=== PATIENT | male | born 1965 | race Caucasian/White ===

== ENCOUNTER → 2016-08-07 10:54 | Outpatient (CLI) | payer MEDICAID ==
--- NOTE | 2016-08-18 07:21 | EEG ---
PATIENT:FERCHO SAXENA DATE OF SERVICE: 08/07/16 MEDICAL RECORD: [id number] DATE OF : 65 LOCATION: [facility] ADMISSION DATE: 08/07/16 REFERRING PHYSICIAN: INTERPRETING PHYSICIAN: HELENE STEEN MD DATE OF SERVICE: 08/07/2016 REFERRED BY: Myself as an outpatient. ELECTROENCEPHALOGRAM NUMBER: [id number] DATE OF EXAMINATION: 08/07/2016 at 11:30 a.m. TECHNICAL DATA: This electroencephalographic recording consisted of approximately 20 minutes of data collection utilizing the international 10/20 system of electrode placement and both referential and non-referential montages. Sixteen channels of electrocerebral recording are accompanied by a 17th channel dedicated to the electrocardiographic rhythm and 2 channels of electromyographic recording. The recording is performed in the awake and drowsy states utilizing activation by photic stimulation. ELECTROENCEPHALOGRAPHIC DATA: The awake state comprises approximately 60% of the recorded electrocerebral activity. Electromyographic artifact is prominent and rapid eye movements are seen. The posterior dominant background consists of a well-developed, symmetric, rhythmic, waxing and waning alpha activity of 10-11 Hz, which is suppressed by eye opening. The drowsy state comprises the remaining portion of the recorded electrocerebral activity. Electromyographic artifact is diminished and rapid eye movements are not seen. The posterior dominant background is relatively suppressed. No abnormal nor focal slowing is identified. No epileptiform discharges are seen. Photic stimulation induces no abnormal change in the recorded electrocerebral activity. INTERPRETATION: 1. Normal (awake and drowsy). This is a normal electroencephalographic recording. TRANSINT:[id number] Voice Confirmation ID: [id number] DOCUMENT ID: [id number] HELENE STEEN MD at 0721 CC: [id number] DICTATION DATE: 08/08/16 0817 MASS SPECTROSCOPIST: 08/08/16 0903 DEP CLI 08/07/16 [id number] [place] [address]
== END | disposition home or self-care (01) ==
LOC: D.CN 10:54
DX: G40.802 Other epilepsy, not intractable, without status epilepticus (principal); R42 Dizziness and giddiness; E29.1 Testicular hypofunction

== ENCOUNTER 2016-12-13 20:39 | Emergency (ER) | payer MEDICAID ==
[2016-12-13 22:27] LABS: BASOPHILS 0.2 % (0-2); EOSINOPHILS 1.8 % (0-7); HEMATOCRIT 52.4 % (42.0-54.0); HEMOGLOBIN 18.5 g/dL (13.5-17.5); IMMATURE GRANULOCYTES 0.2 % (0-5); LYMPHOCYTES 25.1 % (15-50); MCHC 35.3 g/dL (31.0-37.0); MCV 93.4 fL (80.0-100.0); MEAN PLATELET VOLUME 9.9 fL (7.4-10.4); MONOCYTES 7.3 % (2-11); NEUTROPHILS 65.4 % (40-80); PLATELET COUNT 206 10x3/uL (130-400); RBC 5.61 10x6/uL (4.20-6.10); RDW 12.9 % (11.5-14.5); WBC 9.1 10x3/uL (4.8-10.8)
[2016-12-13 22:45] LABS: ALBUMIN 3.4 g/dL (3.4-5.0); BILIRUBIN - TOTAL 0.47 mg/dL (0.2-1.3); CARBON DIOXIDE 31.6 mmol/L (21.0-32.0); CREATININE - SERUM 1.2 mg/dL (0.6-1.3); POTASSIUM - SERUM 3.6 mmol/L (3.5-5.1)
== END 2016-12-14 00:12 | disposition home or self-care (01) ==
LOC: D.ER 20:39
PROVIDERS: Physician Assistant
DX: I10 Essential (primary) hypertension (principal)

== ENCOUNTER → 2017-02-07 07:50 | Outpatient (CLI) | payer MEDICAID ==
[~2017-02-07 07:50] MED LIST: ASPIRIN EC81 M1 PO; CATAPRES0.1 MG PO; CYCLOBENZAPRINE10 MG PO; DIOVAN320 MG PO; DULERA 200 MCG8.8 GM INH; FLOMAX0.4 MG PO; HYDROCODON-ACE1 EAC7 PO; LAMICTAL100 MG PO; PEPCID20 MG PO; SINGULAIR10 MG PO; STOOL SOFTENER100 M1 PO; TESTOSTERON200 MG/ML IM; VALIUM5 MG PO; ZYLOPRIM100 MG PO
== END | disposition home or self-care (01) ==
LOC: D.CT 07:50
DX: K43.2 Incisional hernia without obstruction or gangrene (principal)

== ENCOUNTER 2017-02-12 07:20 | Day surgery (SDC) | payer MEDICAID ==
[2017-02-07 09:56] LABS: HEMATOCRIT 53.7 % (42.0-54.0); HEMOGLOBIN 18.6 g/dL (13.5-17.5); MCH 32.8 pg (26.0-34.0); MCHC 34.6 g/dL (31.0-37.0); MCV 94.7 fL (80.0-100.0); MEAN PLATELET VOLUME 9.9 fL (7.4-10.4); RBC 5.67 10x6/uL (4.20-6.10); RDW 13.3 % (11.5-14.5); WBC 9.8 10x3/uL (4.8-10.8)
[2017-02-07 10:33] LABS: ANION GAP 10.4 mmol/L (8-16); CALCIUM 9.4 mg/dL (8.5-10.1); CARBON DIOXIDE 32.9 mmol/L (21.0-32.0); CREATININE - SERUM 1.2 mg/dL (0.6-1.3); POTASSIUM - SERUM 4.3 mmol/L (3.5-5.1)
[~2017-02-12] VITALS: Ht 180.3 cm; Wt 123.8 kg
[2017-02-12] MEDS ORDERED: HYDROCHLOROTHIA25 MG GT (07:52)
[2017-02-12] MEDS ORDERED: GINKGO BILOBA120 MG PO (07:53)
[2017-02-12] MEDS ORDERED: COLACE100 MG PO (07:54)
[2017-02-12] MEDS ORDERED: CLARITIN 10 MG10 MG PO (07:54)
[2017-02-12 08:06] VITALS: BP 122/83; Ht 180.3 cm; Wt 123.8 kg
[2017-02-12] MEDS ORDERED: NORCO 7.5/325 T1 TA1 PO (15:20)
--- NOTE | 2017-02-12 17:46 | NUR ---
1715--PT VOIDS, IV DC'D. TERRY RIBERA 0406--DISCHARGE INSTRUCTIONS GIVEN, PT VERBALIZES UNDERSTANDING. PT OFF UNIT VIA WC. TERRY RIBERA
== END 2017-02-12 17:30 | disposition home or self-care (01) ==
LOC: D.OPS 07:20 → D.PAN 09:30 → D.OPS 09:30
PROVIDERS: Anesthesiology
DX: K43.0 Incisional hernia with obstruction, without gangrene (principal); K66.0 Peritoneal adhesions (postprocedural) (postinfection); I50.9 Heart failure, unspecified; K21.9 Gastro-esophageal reflux disease without esophagitis; G47.33 Obstructive sleep apnea (adult) (pediatric); E66.9 Obesity, unspecified; Z01.812 Encounter for preprocedural laboratory examination

== ENCOUNTER → 2017-06-10 08:53 | Outpatient (CLI) | payer MEDICAID ==
[2017-02-12 08:06] VITALS: BMI 38.1
[~2017-06-10 08:53] MED LIST changes: +CLARITIN 10 MG10 MG PO; +COLACE100 MG PO; +GINKGO BILOBA120 MG PO; +HYDROCHLOROTHIA25 MG GT; +NASONEX NASAL S17 GM NS; +NORCO 7.5/325 T1 TA1 PO; +VENTOLIN HFA18 GM INH
--- NOTE | 2017-06-14 06:53 | EMG ---
PATIENT:FERCHO SAXENA DATE OF SERVICE: 06/10/17 MEDICAL RECORD: [id number] DATE OF : 65 LOCATION: [facility] ADMISSION DATE: REFERRING PHYSICIAN: JAX VIVAR MD INTERPRETING PHYSICIAN: HELENE STEEN MD DATE OF SERVICE: 06/10/[address] Jax Vivar as an outpatient. ELECTROMYOGRAPHIC DATA: Electromyographic examination is limited to both lower extremities. In the right lower extremity, right peroneal motor stimulation elicits a compound motor action potential with a distal latency of 4.1 milliseconds, peak amplitude of 7 millivolts, and calculated conduction velocity of 41 meters per second. Right tibial motor stimulation elicits a compound motor action potential with a distal latency of 4.2 milliseconds, peak amplitude of 13 millivolts, and calculated conduction velocity of 40 meters per second. Antidromic right sural sensory stimulation elicits a response with a distal latency of 2.1 milliseconds, amplitude of 13 microvolts, and calculated conduction velocity of 40 meters per second. The right lower extremity H reflex recording at gastrocsoleus has a latency of 33 milliseconds. In the left lower extremity, left peroneal motor stimulation elicits a compound motor action potential with a distal latency of 3.8 milliseconds, peak amplitude of 7 millivolts, and calculated conduction velocity of 40 meters per second. Left tibial motor stimulation elicits a compound motor action potential with a distal latency of 4.1 milliseconds, peak amplitude of 17 millivolts, and calculated conduction velocity of 39 meters per second. Antidromic left sural sensory stimulation elicits a response with a distal latency of 3.3 milliseconds, amplitude of 2 microvolts, and calculated conduction velocity of 40 meters per second. The left lower extremity H reflex recording at gastrocsoleus has a latency of 33 milliseconds. Needle electrode examination is limited to both lower extremities as well. Muscles interrogated include the abductor hallucis, extensor digitorum brevis, abductor digiti quinti, tibialis anterior, medial gastrocnemius, vastus lateralis, semitendinosus, and gluteus sarah. There is no abnormality of insertional activity and no abnormal spontaneous activity is seen in all muscles interrogated with the exception of a few positive sharp waves observed in the right tibialis anterior only. Motor unit potential morphology and the pattern of motor unit potential firing and recruitment is normal in all muscles sampled. INTERPRETATION: Electromyographic examination of both lower extremities reveals all calculated conduction velocity is to be at or just below the lower limits of normal in both lower extremities for both motor and sensory studies most consistent with a diffuse disorder of the lower motor neuron in both lower extremities, minimal in degree electrically, consistent with the diagnosis of a sensory motor peripheral polyneuropathy. In addition, a few positive sharp waves are observed in the right tibialis anterior indicative of denervation within this muscle. There are no accompanying changes in other muscles sharing a common innervation pattern making localization further not possible, although this would be consistent with ELECTROMYGRAM/NERVE CONDUCTION [id number] FERCHO SAXENA either a peroneal mononeuropathy or right L5 radiculopathy. Clinical correlation is required. TRANSINT:[id number] Voice Confirmation ID: [id number] DOCUMENT ID: [id number] HELENE STEEN MD at 0653 CC: [id number] DICTATION DATE: 06/11/17 0853 GREIGE GOODS MARKER: 06/11/17 1140 DEP CLI 06/10/17 [id number] [place] [address]
== END | disposition home or self-care (01) ==
LOC: D.CN 08:53
DX: R20.2 Paresthesia of skin (principal); R53.1 Weakness; M54.16 Radiculopathy, lumbar region

== ENCOUNTER → 2017-07-09 07:34 | Outpatient (CLI) | payer MEDICAID ==
[2017-02-12 08:06] VITALS: BMI 38.1
== END | disposition home or self-care (01) ==
LOC: D.RT 07-04 10:00 → D.RAD 07-04 11:00 → D.RT 07:34 → D.RAD 12:15
DX: J45.909 Unspecified asthma, uncomplicated (principal)

== ENCOUNTER 2017-09-02 05:40 | Day surgery (SDC) | payer MEDICAID ==
[2017-09-01 13:04] LABS: HEMATOCRIT 53.2 % (42.0-54.0); HEMOGLOBIN 18.1 g/dL (13.5-17.5); MCH 31.8 pg (26.0-34.0); MCV 93.5 fL (80.0-100.0); MEAN PLATELET VOLUME 9.9 fL (7.4-10.4); RBC 5.69 10x6/uL (4.20-6.10); RDW 12.8 % (11.5-14.5); WBC 10.7 10x3/uL (4.8-10.8)
[2017-09-01 13:18] LABS: ANION GAP 14.2 mmol/L (8-16); CREATININE - SERUM 1.2 mg/dL (0.6-1.3); POTASSIUM - SERUM 4.2 mmol/L (3.5-5.1)
[~2017-09-02] VITALS: Ht 180.3 cm; Wt 122.5 kg
--- NOTE | ~2017-09-02 | OP ---
PATIENT NAME: FERCHO SAXENA MEDICAL RECORD: [id number] :65 LOCATION:[facility] ADMISSION DATE: SURGEON: JAX HUTTON MD DATE OF OPERATION: 09/02/2017 PREOPERATIVE DIAGNOSES: Lumbar spinal stenosis with foraminal stenosis at L4-L5 and L5-S1 on the right. POSTOPERATIVE DIAGNOSES: Lumbar spinal stenosis with foraminal stenosis at L4-L5 and L5-S1 on the right. PROCEDURE: Lumbar laminotomy, medial facetectomy, and foraminotomy at L4-L5 and L5-S1 on the right with METRx retractor. DESCRIPTION AND TECHNIQUE: After induction of general endotracheal anesthesia, the patient was rolled prone on a Aleksandr frame. Lumbar spine was prepped and draped in usual sterile fashion. Fluoroscopic x-ray and spinal needle localized the L4-L5 interspace on the right side. A stab incision was created with #11 blade and series of dilators was used to advance a METRx retractor to the L4-L5 interspace on the right side. A microscope and Midas Riley drill were used to perform laminotomy, laminectomy, medial facetectomy and foraminotomy at L4-L5 and L5-S1 on the right. Hypertrophied ligamentum flavum was removed with Cloward rongeurs. Following this, the L5 and S1 nerve roots were decompressed well. Meticulous hemostasis was maintained throughout the wound. The wound was irrigated with copious amounts of Ancef irrigant solution. The fascia was closed with 2-0 Vicryl suture, the subdermal layer was closed with 3-0 Vicryl suture, skin was closed with debby. Sterile dressing was applied to the wound. The patient was awakened in good condition and taken to recovery. All counts were reported as correct. Estimated blood loss was minimal. TRANSINT:[id number] Voice Confirmation ID: [id number] DOCUMENT ID: [id number] JAX HUTTON MD CC: [id number] DICTATION DATE: 09/02/17 1150 UPPER CUTTER: 09/02/17 1202 [id number] [place] [address]
[~2017-09-02 05:40] MED LIST changes: -NASONEX NASAL S17 GM NS; -VENTOLIN HFA18 GM INH
[2017-09-02] MEDS ORDERED: NASONEX NASAL S17 GM NS (07:53)
[2017-09-02] MEDS ORDERED: VENTOLIN HFA18 GM INH (07:53)
[2017-09-02] MEDS ORDERED: TESTOSTERON200 MG/ML IM (07:55)
[2017-09-02 08:00] VITALS: BP 133/92; Ht 180.3 cm; Wt 122.5 kg
== END 2017-09-02 14:26 | disposition home or self-care (01) ==
LOC: D.OPS 05:40 → D.PAN 09:30 → D.OPS 09:30
PROVIDERS: Anesthesiology
DX: M54.16 Radiculopathy, lumbar region (principal); I10 Essential (primary) hypertension; K21.9 Gastro-esophageal reflux disease without esophagitis; G89.29 Other chronic pain; G47.30 Sleep apnea, unspecified; E66.01 Morbid (severe) obesity due to excess calories; Z68.37 Body mass index [BMI] 37.0-37.9, adult; Z01.812 Encounter for preprocedural laboratory examination

== ENCOUNTER → 2018-12-24 08:49 | Outpatient (CLI) | payer OTHER | END | disposition home or self-care (01) | LOC: D.RT 08:49 | DX: J45.909 Unspecified asthma, uncomplicated (principal) ==